=== PATIENT | male | born 1975 | race Caucasian/White ===

== ENCOUNTER 2022-01-29 15:34 | Emergency (ER) | payer OTHER ==
[2022-01-29 16:01] VITALS: BP 137/80; PULSE 90; TEMP 97.8; BMI 23.1
== END 2022-01-29 17:53 | disposition home or self-care (01) ==
LOC: JER 15:34
DX: M62.81 Muscle weakness (generalized) (principal)
CPT/HCPCS: 93005; 93010; 99283-25